=== PATIENT | female | born 1980 | race Caucasian/White ===

== ENCOUNTER 2016-10-13 10:32 | Day surgery (SDC) | payer BC ==
--- NOTE | ~2016-10-13 | EGD ---
EGD REPORT [facility] [address] [place] [address] NAME: TIM SPRINGER : [birth year] STATUS : REG [facility]#: [id number] AGE: 36 ADM/REG DATE : 10/13/16 MR#: [id number] REPORT SERV DATE: 10/13/16 DICTATED BY: GONZALO REYES DATE: 10/13/16 REPORT STATUS : Draft TRANSCRIBED BY: [facility] DATE: 10/13/16 Endoscopy Center Patient Name: Tim Springer Date of : 1980 Attending MD: GONZALO REYES MD Procedure Date No Time: 10/13/2016 Procedure: Upper GI endoscopy Indications: Abdominal pain in the left upper quadrant, Hematemesis, Nausea Referring MD: Ez Bauer Medicines: as per anesthesia Complications: No immediate complications. Procedure: Pre-Anesthesia Assessment: - ASA Grade Assessment: III - A patient with severe systemic disease. After obtaining informed consent, the endoscope was passed under direct vision. Throughout the procedure, the patient's blood pressure, pulse, and oxygen saturations were monitored continuously. The GIF [id number] was introduced through the mouth, and advanced to the jejunum. The upper GI endoscopy was accomplished without difficulty. The patient tolerated the procedure. Findings: The examined esophagus was normal. 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 The gastrojejunal anastomosis was characterized by healthy appearing mucosa. This was traversed. The aropz-sg-fwikrqg limb was characterized by healthy appearing mucosa. Impression: - Normal esophagus. - Elizabeth-en-Y gastrojejunostomy. The gastrojejunal anastomosis had healthy appearing mucosa. Recommendation: - Continue present medications. Procedure Code(s): --- Professional --- 16513, Esophagogastroduodenoscopy, flexible, transoral; diagnostic, including collection of specimen(s) by brushing or washing, when performed (separate procedure) Diagnosis Code(s): --- Professional --- Z98.0, Intestinal bypass and anastomosis status R10.12, Left upper quadrant pain K92.0, Hematemesis EGD REPORT [facility] [address] [id number] NAME: TIM SPRINGER : [birth year] STATUS : REG [facility] PAT#: [id number] AGE: 36 ADM/REG DATE : 10/13/16 MR#: [id number] REPORT SERV DATE: 10/13/16 DICTATED BY: GONZALO REYES. DATE: 10/13/16 REPORT STATUS : Draft TRANSCRIBED BY: [employer] DATE: 10/13/16 R11.0, Nausea CPT copyright 2013 [employer]. All rights reserved. The codes documented in this report are preliminary and upon cnmt review may be revised to meet current compliance requirements. GONZALO REYES MD 10/13/2016 2:52 PM This report has been signed electronically. Number of Addenda: 0 Note Initiated On: 10/13/2016 2:23 PM Scope Withdrawal Time 0 hours 0 minutes 0 seconds [id number] [place] [id number]
[~2016-10-13 10:32] MED LIST: BENTYL10 PO; CIP5 PO; HYDROMET1 ML PO; PR25 PO; PREV30 PO; SUCR PO; ZOFRAN4 PO; [UNRECOGNIZED DRUG - OTHER] PO
== END 2016-10-13 23:59 | disposition home or self-care (01) ==
LOC: DMU 10:32
PROVIDERS: Internal Medicine Gastroenterology
PROC: 0DJ08ZZ Inspection of Upper Intestinal Tract, Via Natural or Artificial Opening Endoscopic (ICD-10-PCS; principal; 2016-10-13 12:30)
DX: K92.0 Hematemesis (principal); R10.12 Left upper quadrant pain; R11.0 Nausea; K58.9 Irritable bowel syndrome, unspecified; M19.90 Unspecified osteoarthritis, unspecified site; I95.9 Hypotension, unspecified; G43.909 Migraine, unspecified, not intractable, without status migrainosus; E66.9 Obesity, unspecified; F17.210 Nicotine dependence, cigarettes, uncomplicated; Z88.0 Allergy status to penicillin; Z98.0 Intestinal bypass and anastomosis status; Z88.5 Allergy status to narcotic agent; Z88.8 Allergy status to other drugs, medicaments and biological substances; Z90.49 Acquired absence of other specified parts of digestive tract; Z90.710 Acquired absence of both cervix and uterus; Z98.890 Other specified postprocedural states